=== PATIENT | male | born 1995 | race Caucasian/White ===

== ENCOUNTER 2022-10-30 12:31 | Emergency (ER) | payer MEDICAID ==
[~2022-10-30] VITALS: Ht 185.4 cm; Wt 79.8 kg
[2022-10-30] MEDS ORDERED: SUBOXONE 8 MG-1 EAC1 SL (12:40)
[2022-10-30] MEDS ORDERED: ZOLOFT100 MG PO (12:41)
--- OUTSIDE RECORDS SUMMARY | 2022-10-30 13:28 | XMS ---
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 Antoni VISIT COUNT (12 MO.) 1 [facility] TOTAL 1 NOTE: Visits indicate total known visits. ED/UCC VISIT TRACKING (12 MO.) 10/30/2022 12:32 [facility] TYPE: Emergency COMPLAINT: - COLD SYMPTOMS INPATIENT VISIT TRACKING (12 MO.) No inpatient visits to display in this time frame [email or web address]
== END 2022-10-30 13:41 | disposition home or self-care (01) ==
LOC: ED 12:31
DX: J20.9 Acute bronchitis, unspecified (principal); Z20.822 Contact with and (suspected) exposure to COVID-19; Z79.899 Other long term (current) drug therapy
CPT/HCPCS: 99283